=== PATIENT | male | born 1995 | race Caucasian/White ===

== ENCOUNTER 2016-11-19 14:54 | Emergency (ER) | payer OTHER ==
[2016-11-19 15:04] VITALS: BP 144/89; PULSE 79; TEMP 97.9; BMI 25.0
--- NOTE | 2016-11-19 15:07 | PDOC ---
Rapid Medical Evaluation Chief Complaint: Pain, Acute Time Seen by Provider: 11/19/16 15:00 Medical Evaluation: Allergies Allergy/AdvReac Type Severity Reaction Status Date / Time Penicillins Allergy Verified 11/19/16 15:03 Vital Signs Temp Pulse Resp BP Pulse Ox 97.9 F 79 18 144/89 100 11/19/16 15:00 11/19/16 15:00 11/19/16 15:00 11/19/16 15:00 11/19/16 15:00 11/19/16 15:04 o I have performed a brief in-person evaluation of this patient. o The patient presents with a chief complaint of: Right lateral neck pain. o Pertinent physical exam findings:RIght lateral and right anterior neck pain , woke up with pain several days ago. Denies trauma, pain is getting better but there is a fullness and pain to touch to the right lateral and anterior neck. o I have ordered the following: Awaiting eval in [facility] o The patient will proceed to the ED for further evaluation.
--- NOTE | 2016-11-19 16:29 | PDOC ---
History of Present Illness - General Chief Complaint: Pain, Acute Stated Complaint: NECK PROBLEM Time Seen by Provider: 11/19/16 15:00 History Source: Patient Exam Limitations: No Limitations - History of Present Illness Initial Comments: 11/19/16 16:40 11/19/16 16:41 My chief complaint: Rt/anterior/Lateral neck discomfort with stiffness of muscle History of present illness: Patient is a 21-year-old male with no significant medical problems here today complaining of right anterior lateral neck discomfort when waking 4 days ago. Patient reports that he took ibuprofen without relief of discomfort. Patient reports that he feels the discomfort all the time is worse with turning of neck. Pt. reports has been working out of the gym however has not done so for 2 days and symptoms have not resolved. He denies any nasal congestion, internal sore throat or difficulty swallowing or any difficulty breathing or fever. He does not remember doing anything at the gym that would've caused him to have discomfort in his neck. 11/19/16 17:09 Severity: mild Associated Symptoms: reports: other (discomfort rt anterior/lateral neck with stiffness of area with spasm of muscle ) Past History - Past Medical History Allergies/Adverse Reactions: Allergies Allergy/AdvReac Type Severity Reaction Status Date / Time Penicillins Allergy Verified 11/19/16 15:03 Home Medications: Ambulatory Orders Azithromycin [Zithromax Z-YAKOV (5 DAYS)] 250 mg PO DAILY #6 tablet 06/19/11 Neomy Sulf/Polymyx B Sulf/Hc [Cortisporin Ear Solution] 4 gtt OT Q4HWA #1 solution 06/19/11 Other medical history: PATIENT DENIES MEDICAL HISTORY - Immunization History Immunization Up to Date: Yes - Psycho/Social/Smoking Cessation Hx Anxiety: No Suicidal Ideation: No Smoking Status: No Smoking History: Never smoked Number of Cigarettes Smoked Daily: 0 Information on smoking cessation initiated: No Hx Alcohol Use: Yes (OCCASIONALLY) Drug/Substance Use Hx: No Review of Systems - Review of Systems Able to Perform ROS?: Yes Constitutional: No: Symptoms Reported HEENTM: No: Symptoms Reported Respiratory: No: Symptoms reported Cardiac (ROS): No: Symptoms Reported ABD/GI: No: Symptoms Reported : No: Symptoms Reported Musculoskeletal: Yes: Neck Pain (rt. anterior/lateral neck discomfort with stiffness x 4 days) Integumentary: No: Symptoms Reported Neurological: No: Symptoms reported *Physical Exam - Vital Signs Last Vital Signs Temp Pulse Resp BP Pulse Ox 97.9 F 79 18 144/89 100 11/19/16 15:00 11/19/16 15:00 11/19/16 15:00 11/19/16 15:00 11/19/16 15:00 - Physical Exam General Appearance: Yes: Appropriately Dressed HEENT: positive: TMs Normal, Pharyngeal Erythema (minimal ). negative: Tonsillar Exudate, Tonsillar Erythema (minimal with no uvular deviation ) Neck: positive: Tender lateral (rt. sternocleidomastoid muscle tenderness with spasm). negative: Decreased range of motion, Lymphadenopathy (R), Lymphadenopathy (L), Rigidity, Thyromegaly Respiratory/Chest: positive: Lungs Clear, Normal Breath Sounds. negative: Chest Tender, Respiratory Distress Cardiovascular: positive: Regular Rhythm, Regular Rate, S1, S2 Integumentary: positive: Normal Color Neurologic: positive: Alert, Normal Response, Responsive Medical Decision Making - Medical Decision Making 11/19/16 16:46 Patient is a 21-year-old male with no significant medical problems here today complaining of right anterior lateral neck discomfort when waking 4 days ago. Patient reports that he took ibuprofen without relief of discomfort. Patient reports that he feels the discomfort all the time is worse with turning of neck. Pt. reports has been working out of the gym however has not done so for 2 days and symptoms have not resolved. He denies any nasal congestion, internal sore throat or difficulty swallowing or any difficulty breathing or fever. He does not remember doing anything at the gym that would've caused him to have discomfort in his neck. rt. anterior/lateral neck discomfort with spasm of sternocleidomastoid PLAN: throat C & S rapid negative does not want pain medication 11/19/16 17:24 *DC/Admit/Observation/Transfer Diagnosis at time of Disposition: Strain of sternocleidomastoid muscle Qualifiers: Encounter type: initial encounter Qualified Code(s): S16.1XXA - Strain of muscle, fascia and tendon at neck level, initial encounter - Discharge Dispostion Disposition: HOME Condition at time of disposition: Stable - Referrals Referrals: Jovanny Mari MD [Primary Care Provider] - - Patient Instructions Additional Instructions: Follow-up with your primary care provider within the next few days Ibuprofen as needed as directed by collar stay fuser tender Avoid strenuous activities and exercise until symptoms re resolve Return to emergency room if symptoms worsen any radiation of pain down the right arm or numbness or weakness of arm Patient voiced understanding of discharge instructions and all questions were answered
== END 2016-11-19 17:40 | disposition home or self-care (01) ==
LOC: JERFT 14:54
DX: S16.1XXA Strain of muscle, fascia and tendon at neck level, initial encounter (principal); X58.XXXA Exposure to other specified factors, initial encounter; Y93.9 Activity, unspecified; Y92.9 Unspecified place or not applicable
CPT/HCPCS: 87070; 87430; 99281-25